=== PATIENT | female | born 2000 | race Caucasian/White ===

== ENCOUNTER 2019-11-11 01:16 | Emergency (ER) | payer MEDICAID, OTHER ==
[~2019-11-11] VITALS: Ht 165.1 cm; Wt 61.7 kg
[2019-11-11 01:28] VITALS: BP 115/65
--- NOTE | 2019-11-11 01:28 | NUR ---
ARRIVAL PATIENT PRESENTS WITH COMPLAINTS OF LOWER ABDOMINAL CRAMPING AND LOWER BACK PAIN SINCE FRIDAY. PATIENT ALSO REPORTS BURNING ON URINATION SINCE YESTERDAY. REPORTS LMP 06/26/19. DENIES BLEEDING. STATES SHE DOESN'T HAVE ANY PAIN AT THIS TIME. VSS. KELVIN MD NOTIFIED.
--- NOTE | 2019-11-11 01:51 | ER.PDOC ---
General Chief Complaint: Requesting Medical Care Stated Complaint: 19 WKS PREG/ABD PAIN Time seen by MD: 01:34 Source: patient Exam Limitations: no limitations History of Present Illness Initial Comments t reports pelvic cramping that has been constant since Friday evening. Is visiting in town, has seen [facility] where she lives. No fever, noted some dysuria ton ight. No bleeding Severity/Quality: mild Location of Pain: pelvic pain Test: clinic, ultrasound Care: clinic Contraceptive: none Associated Symptoms: denies symptoms Prior symptoms/Treatment: No Similar symptoms previous; Treated by Doctor Allergies: Coded Allergies: sulfamethoxazole (Verified Allergy, Unknown, 11/11/19) trimethoprim (Verified Allergy, Unknown, 11/11/19) Past Medical History Medical History: no pertinent history Surgical History: no surgical history Review of Systems Constitutional: no symptoms reported; denies chills, denies fever EENTM: no symptoms reported Respiratory: no symptoms reported Cardiovascular: no symptoms reported Gastrointestinal: no symptoms reported; denies constipation, denies diarrhea, denies nausea, denies vomiting Genitourinary: see HPI, dysuria Musculoskeletal: no symptoms reported Skin: no symptoms reported Psychiatric/Neurological: no symptoms reported All Other Systems: Reviewed and Negative Physical Exam General Appearance: No Apparent Distress Neck: nml inspection Cardiovascular/Respiratory: Regular Rate, Rhythm, Normal Peripheral Pulses Abdomen: Normal Bowel Sounds, Other (gravid uterus noted, minimal discomfort to palpation suprapubic region) Rectal: Deferred Back: nml inspection Extremities: Normal Range of Motion, Non-Tender Neurologic/Psychiatric: No Motor/Sensory Deficits, Alert, Oriented x 3 Skin: Normal Color Lymphatic: No Adenopathy Results/Orders Results/Orders Orders - JEAN WARREN DO Urinalysis (11/11/19 01:45) Us Preg After 14 Wks (11/11/19 01:45) Cbc With Auto Diff (11/11/19 02:03) Basic Metabolic Panel (11/11/19 02:03) Vital Signs Date Time Temp Pulse Resp B/P (MAP) Pulse Ox O2 Delivery O2 Flow Rate FiO2 11/11/19 01:28 97.9 82 18 115/65 (82) 100 Room Air 11/11/19 01:28 97.9 82 18 11/11/19 01:28 97.9 82 18 100 Laboratory Tests Test 11/11/19 01:32 11/11/19 02:10 Urine Collection Type VOID Urine Color YELLOW (YELLOW) Urine Appearance CLEAR (CLEAR) Urine Bilirubin NEGATIVE MG/DL (NEGATIVE) Urine Ketones NEGATIVE (NEGATIVE) Urine Specific [place] 1.025 (1.005-1.035) Urine pH 6 (5.0-6.0) Urine Protein NEGATIVE (NEGATIVE) Urine Urobilinogen NORMAL (NEGATIVE) Urine Nitrate NEGATIVE (NEGATIVE) Urine Leukocyte Esterase NEGATIVE (NEGATIVE) Urine Blood NEGATIVE (NEGATIVE) Urine Glucose NORMAL (NEGATIVE) White Blood Count 13.1 10^3/uL (4.5-12.5) H Red Blood Count 3.41 10^6/uL (4.00-5.20) L Hemoglobin 10.9 g/dL (12.4-14.8) L Hematocrit 31.4 % (36.0-46.0) L Mean Corpuscular Volume 92.1 fL (78-100) Mean Corpuscular Hemoglobin 32.0 pg (26-34) Mean Corpuscular Hemoglobin Concent 34.7 g/dL (33-36.5) Red Cell Distribution Width 12.7 % (11.5-14.5) Platelet Count 269 10^3/uL (150-400) Mean Platelet Volume 9.8 fL (7.8-11.0) Neutrophils (%) (Auto) 65.9 % (41.0-85.0) Lymphocytes (%) (Auto) 25.4 % (24.0-44.0) Monocytes (%) (Auto) 6.4 % (5.0-12.0) Neutrophils # (Auto) 8.6 10^3/uL (1.8-8.0) H Lymphocytes # (Auto) 3.33 10^3/uL1 (1.2-5.2) Monocytes # (Auto) 0.8 10^3/uL (0.0-0.4) H Absolute Immature Granulocyte (auto 0.10 10^3 u/L (0-2) Absolute Eosinophils (auto) 0.2 10^3/uL (0.0-0.2) Immature Granulocytes % 0.80 % (0.00-0.50) H Eosinophils % 1.3 % (0.0-5.0) Basophils % 0.2 % (0.0-0.2) Basophils # 0.0 10^3/uL (0.0-0.1) Sodium Level 139 mmol/L (132-145) Potassium Level 3.6 mmol/L (3.6-5.2) Chloride Level 104.0 mmol/L (96-109) Carbon Dioxide Level 25.4 mmol/L (20.0-32) Glucose Level 89 mg/dL (70-110) Blood Urea Nitrogen 9 mg/dL (7-18) Creatinine 0.60 mg/dL (0.59-1.40) Calcium Level 8.7 mg/dL (8.4-10.5) Anion Gap 13.2 Estimated GFR () 154.2 (>/=60) Est GFR (CKD-EPI)(Non-Afr [place]) 127.5 (>/=60) BUN/Creatinine Ratio 15.0 Progress Progress Pt without UTI, has nml U/S, no fever, will d/c home, have her f/u with OB in 1- 2 days, return if symptoms worsen. Departure Time of Disposition: 03:22 Disposition: 01 HOME, SELF-CARE Impression: Primary Impression: Discomfort during Condition: Stable Referrals: PCP,UNKNOWN (PCP) PRIMARY CARE PROVIDER Duration or Time Spent with Pa: 20 JEAN WARREN DO Nov 11, 2019 01:51
[2019-11-11 02:00] LABS: BILIRUBIN,URINE NEGATIVE (NEGATIVE); UROBILINOGEN,URINE NORMAL (NEGATIVE)
[2019-11-11 02:01] LABS: APPEARANCE,URINE CLEAR (CLEAR); UA COLOR YELLOW (YELLOW)
[2019-11-11 02:12] LABS: BASOPHIL % 0.2 % (0.0-0.2); EOSINOPHIL # 0.2 10^3/uL (0.0-0.2); EOSINOPHIL % 1.3 % (0.0-5.0); LYMPHOCYTES # 3.33 10^3/uL1 (1.2-5.2); LYMPHOCYTES % 25.4 % (24.0-44.0); MONOCYTES # 0.8 10^3/uL (0.0-0.4); MONOCYTES % 6.4 % (5.0-12.0); NEUTROPHIL # 8.6 10^3/uL (1.8-8.0); NEUTROPHILS % 65.9 % (41.0-85.0); PLATELET COUNT 269 10^3/uL (150-400); RED CELL DISTRIBUTION WIDTH 12.7 % (11.5-14.5)
[2019-11-11 02:22] LABS: CARBON DIOXIDE 25.4 mmol/L (20.0-32)
[2019-11-11 02:23] LABS: CALCIUM 8.7 mg/dL (8.4-10.5)
[2019-11-11 02:30] VITALS: BP 125/56
--- NOTE | 2019-11-11 02:47 | NUR ---
ULTRASOUND PATIENT IS BEING TAKEN TO ULTRASOUND AT THIS TIME.
--- NOTE | 2019-11-11 03:05 | NUR ---
ULTRASOUND PATIENT IS BACK FROM ULTRASOUND.
--- NOTE | 2019-11-11 03:15 | DIREP ---
PROCEDURE:US OB LIMITED COMPARISON:None. INDICATIONS:pelvic cramping TECHNIQUE: Transabdominal sonography of the gravid uterus was performed FINDINGS: ESTIMATED WEIGHT:319.30 g HEART RATE:134.12 1/min COMPOSITE ULTRASOUND AGE:19 weeks, 5 days CEPHALIC INDEX:73.32 HC/AC:1.19 FL/AC:20.82 FL/HC:17.53 FL/BPD:67.83 ABD CIRCUMFERENCE:14.85 cm, 20 weeks, 1 day BIPARIETAL DIAMETER:4.56 cm, 19 weeks, 5 days HEAD CIRCUMFERENCE:17.64 cm, 20 weeks, 1 day FEMUR LENGTH:3.09 cm, 19 weeks, 4 days OCCIPITAL-FRONTAL DIAMETER:6.22 cm AMNIOTIC FLUID INDEX:Largest vertical pocket is 3.4 cm, within normal limits CERVIX LENGTH:3.01 cm POSITION:Currently cephalic PLACENTA:Anterior, no previa Survey anatomic evaluation was not performed. CONCLUSION:Live gestation 19 weeks 6 days. No previa, amniotic fluid index appears to be within normal limits. Dictated by: Aníbal Diaz MD on 11/11/2019 at 03:10 AM
[2019-11-11 03:27] VITALS: BP 111/61
== END 2019-11-11 03:30 | disposition home or self-care (01) ==
LOC: ER 01:16
DX: O26.892 Other specified pregnancy related conditions, second trimester (principal); R10.2 Pelvic and perineal pain; Z88.1 Allergy status to other antibiotic agents; Z88.2 Allergy status to sulfonamides; Z3A.19 19 weeks gestation of pregnancy
CPT/HCPCS: 36415; 76805; 80048; 81002; 85025; 99284